=== PATIENT | female | born 1950 | race Caucasian/White ===

== ENCOUNTER 2016-05-23 14:45 | Emergency (ER) | payer OTHER, MEDICARE ==
--- NOTE | 2016-05-23 14:47 | EDPHY ---
HPI/HX/ROS/PE/MDM Narrative: CHIEF COMPLAINT: Fall, AMS. HPI: This is a 68-year-old female presenting via EMS as a full trauma activation for AMS after a fall and head trauma. Per EMS she was found by her down in the shower after an apparent head trauma. He had last seen her normal at 1200. She was initially unresponsive but was able to answer basic questions for EMS. She is oriented to self. She denies any pain. She denies any preceding factors. She admits to drinking a large amount of alcohol today. History is thus limited. REVIEW OF SYSTEMS: Unobtainable due to patient's clinical condition. PMH: Unknown. SOCIAL HISTORY: . PHYSICAL EXAM: General:Patient is in no acute distress. Head: Abrasion above right eyebrow, contusion at right episcopal. ENT:Eyes are normal to inspection. ENT inspection normal. PERRL, pupils 3mm. Neck: Normal inspection. Full range of motion. Respiratory:No respiratory distress. Breath sounds normal bilaterally. Cardiovascular: Regular rate and rhythm. Strong peripheral pulses. Normal cap refill. Abdomen:The abdomen is nontender to palpation. There are no peritoneal signs. There are normal bowel sounds. Back: Normal to inspection. No tenderness to palpation. Skin: Normal color. No rash. Warm and dry. Extremities: Normal appearance. Full range of motion. Neuro: Normal motor function. Normal sensory function. ED Course: I met the patient on arrival and obtained a report from the vinyl welder and fabricator. Respiratory therapy at bedside. Dr. Johnson, surgery, at bedside. Full trauma activation was downgraded after initial examination. She was placed in a c- collar on arrival. Patient was placed on nasal cannula oxygen. An IV was established and labs ordered, including blood alcohol level. Head and cervical spine CTs ordered. Blood alcohol level 201. Study: CT of the head. Indication: Results: No acute process. The study was read by the radiologist, Dr. Dalal. I viewed the images myself on the PACS system. Study: CT of the cervical spine. Indication: Results: No acute process. The study was read by the radiologist, Dr. Dalal. I viewed the images myself on the PACS system. MDM: This patient presented as a full trauma activation due to fall and AMS. Thankfully, her workup is negative and there are no signs of severe head trauma on head CT. I had an extensive discussion with the patient and her family regarding these results. The patient and family do not know exactly what happened, although it sounds like there was some severe emotional stress related to a family member and the patient did drink some alcohol. Given the uncertainty around what led to her fall, I recommended that the patient be admitted as an observation patient overnight in order to rule out possible neurologic or cardiac etiology of her fall and AMS, and to ensure her mental status remained normal. She and her family agreed. A short time after this, I was notified by the nurse that the patient changed her mind and wanted to be discharged. I went back to the patient's room and discussed this with her - she stated that she wanted to go home but knew that if she was listed as "against medical advice" then she would have to pay $100,000 for the visit. I told her I have no knowledge that this is true, or what her financial obligation would be in any case, and that my primary concern was her safety. At this point, another full trauma activation came in, which required by immediate attention. Upon returning to talk with the patient, she was extremely upset and told me that she does not feel respected or that she has received any attention from the hospital staff. I explained to her and her family that she came in as a Full Trauma Activation, which meant that approximately 20 staff members were at her bedside from the moment she arrived. She tells me that she demands I change her status to something other than AMA so that she can leave and not be charged extra money. I again explained to her and her family that in my medical opinion she should be admitted for telemetry monitoring and further observation and workup. I told her we would never force her to stay against her will but that I would not change my medical opinion because of her demand that I do. She then became extremely upset and said that this is clearly not my medical opinion and that I am doing this only to make the hospital money. She says "This is clearly not your medical opinion - this is just a one size fits all policy!" She then stated that she would be admitted in order to avoid this extra cost, but wouldn't allow anyone to do tests on her. I explained to the patient that we are all here for her safety, but that admission to the hospital for the sole reason of avoiding AMA in her chart is neither rational nor an ethical use of the limited resources of the hospital. The patient stated that we have paid no attention to her and that our primary motivation was to try and charge her more money. Again, I told the patient we would not force the patient to stay against her will, and that she would have to make a decision. She told me that she wanted to walk out of the ED now. The patient was thus discharged from the ED. I think the patient is making a poor decision, but she is now clinically sober and appears to have decisional capacity. Her family is at bedside and appears to accept this decision. I am unsure why she has become so hostile to staff. Our interaction was witnessed by Dr. Johnson from Trauma Surgery as well as multiple members of the nursing staff. - Data Points Laboratory Results: Laboratory Results 05/23/16 16:15 05/23/16 14:57 05/23/16 05/23/16 05/23/16 16:15 16:15 14:57 WBC 7.49 10^3/uL 10^3/uL (3.80-9.50) RBC 4.43 10^6/uL 10^6/uL (4.18-5.33) Hgb 14.7 g/dL g/dL (12.6-16.3) POC Hgb Hct 43.1 % % (38.0-47.0) POC Hct MCV 97.3 fL fL (81.5-99.8) MCH 33.2 pg pg (27.9-34.1) MCHC 34.1 g/dL g/dL (32.4-36.7) RDW 12.8 % % (11.5-15.2) Plt Count 203 10^3/uL 10^3/uL (150-400) MPV 10.3 fL fL (8.7-11.7) Neut % (Auto) 55.2 % % (39.3-74.2) Lymph % (Auto) 34.8 % % (15.0-45.0) Gates % (Auto) 6.9 % % (4.5-13.0) Eos % (Auto) 2.3 % % (0.6-7.6) Baso % (Auto) 0.4 % % (0.3-1.7) Nucleat RBC Rel Count 0.0 % % (0.0-0.2) Absolute Neuts (auto) 4.13 10^3/uL 10^3/uL (1.70-6.50) Absolute Lymphs (auto) 2.61 10^3/uL 10^3/uL (1.00-3.00) Absolute Monos (auto) 0.52 10^3/uL 10^3/uL (0.30-0.80) Absolute Eos (auto) 0.17 10^3/uL 10^3/uL (0.03-0.40) Absolute Basos (auto) 0.03 10^3/uL 10^3/uL (0.02-0.10) Absolute Nucleated RBC 0.00 10^3/uL 10^3/uL (0-0.01) Immature Gran % 0.4 % % (0.0-1.1) Immature Gran # 0.03 10^3/uL 10^3/uL (0.00-0.10) POC Sodium Sodium POC Potassium Potassium POC Chloride Chloride Carbon Dioxide Anion Gap POC BUN BUN Creatinine POC Creatinine Estimated GFR Glucose POC Glucose Calcium Troponin I < 0.012 ng/mL ng/mL (0-0.034) Ethyl Alcohol Patient ABO/Rh A POSITIVE Antibody Screen NEGATIVE 05/23/16 05/23/16 14:57 14:53 WBC RBC Hgb POC Hgb 17.0 gm/dL H gm/dL (12.3-15.9) Hct POC Hct 50 % H % (35.5-47.5) MCV MCH MCHC RDW Plt Count MPV Neut % (Auto) Lymph % (Auto) Gates % (Auto) Eos % (Auto) Baso % (Auto) Nucleat RBC Rel Count Absolute Neuts (auto) Absolute Lymphs (auto) Absolute Monos (auto) Absolute Eos (auto) Absolute Basos (auto) Absolute Nucleated RBC Immature Gran % Immature Gran # POC Sodium 144 mEq/L mEq/L (134-144) Sodium 143 mEq/L mEq/L (134-144) POC Potassium 4.4 mEq/L mEq/L (3.3-5.0) Potassium 4.9 mEq/L mEq/L (3.5-5.2) POC Chloride 109 mEq/L H mEq/L (96-108) Chloride 107 mEq/L mEq/L (97-110) Carbon Dioxide 20 mEq/l L mEq/l (22-31) Anion Gap 16 mEq/L mEq/L (8-16) POC BUN 13 mg/dL mg/dL (7-23) BUN 13 mg/dL mg/dL (7-23) Creatinine 0.7 mg/dL mg/dL (0.6-1.0) POC Creatinine 0.9 mg/dL mg/dL (0.6-1.2) Estimated GFR > 60 Glucose 99 mg/dL mg/dL (70-100) POC Glucose 100 mg/dL mg/dL (70-100) Calcium 9.4 mg/dL mg/dL (8.5-10.4) Troponin I Ethyl Alcohol 201 mg/dL H mg/dL (0-10) Patient ABO/Rh Antibody Screen Medications Given: Discontinued Medications Sodium Chloride (Ns) 1,000 mls @ 0 mls/hr IV ONCE ONE PRN Reason: Wide Open Stop: 05/23/16 14:54 Last Admin: 05/23/16 14:48 Dose: 1,000 mls Point of Care Test Results: 05/23/16 14:53 POC Sodium 144 POC Potassium 4.4 POC Chloride 109 H POC BUN 13 POC Creatinine 0.9 POC Glucose 100 General Initial Vital Signs: Initial Vital Signs Temperature (C) 36.1 C 05/23/16 14:45 Heart Rate 86 05/23/16 14:45 Respiratory Rate 14 05/23/16 14:45 Blood Pressure 108/70 05/23/16 14:45 O2 Sat (%) 86 L 05/23/16 14:45 O2 Delivery Mode Nasal Cannula Allergies/Adverse Reactions: No Known Allergies Allergy (Unverified 08/14/15 19:14) Home Medications: Medication Instructions Recorded Ativan 05/23/16 Departure - Departure Disposition: Home, Routine, Self-Care Clinical Impression: Alcohol intoxication Qualifiers: Complication of substance-induced condition: uncomplicated Qualified Code(s): F10.120 - Alcohol abuse with intoxication, uncomplicated Closed head injury Qualifiers: Encounter type: initial encounter Qualified Code(s): S09.90XA - Unspecified injury of head, initial encounter Condition: Good Instructions: Head Injury (ED), Alcohol Intoxication (ED) Additional Instructions: Follow up with your primary care provider this week for reevaluation. Return to the ED for any serious worsening of condition. Referrals: Patient,NotPresent [Primary Care Provider] - As per Instructions Report Scribed for: Dani Ventura Report Scribed by: Flip Guzman Date of Report: 05/23/16 Time of Report: 14:43 Physician Review and Approval Statement: Portions of this note were transcribed by a director medical economics. I personally performed a history, physical exam, medical decision making, and confirmed accuracy of information the transcribed note.
[2016-05-23] MEDS ORDERED: NS 1,000 ML IV ONE (14:53)
[2016-05-23 15:17] LABS: ANION GAP 16 mEq/L (8-16); CALCIUM 9.4 mg/dL (8.5-10.4); CARBON DIOXIDE 20 mEq/l (22-31); CHLORIDE 107 mEq/L (97-110); CREATININE 0.7 mg/dL (0.6-1.0); ETHANOL SERUM 201 mg/dL (0-10); GLOMERULAR FILTRATION RATE > 60; GLUCOSE 99 mg/dL (70-100); POTASSIUM 4.9 mEq/L (3.5-5.2); SODIUM 143 mEq/L (134-144)
--- NOTE | 2016-05-23 16:21 | CPEKG ---
Heart Rate: 93 RR Interval: 645 P-R Interval: 164 QRSD Interval: 82 QT Interval: 380 QTC Interval: 473 P [place]: 57 QRS [place]: 13 T Wave [place]: 10 EKG Severity - NORMAL ECG - EKG Impression: SINUS RHYTHM Electronically Signed By: Micah Shields 24-May-2016 09:40:10
[2016-05-23 16:29] LABS: % IMMATURE GRANULYOCYTES 0.4 % (0.0-1.1); ABSOLUTE IMMATURE GRANULOCYTES 0.03 10^3/uL (0.00-0.10); ADD DIFF? NO; ADD MORPH? NO; ADD SCAN? NO; ATYPICAL LYMPHOCYTE FLAG 0 (0-99); FRAGMENT RBC FLAG 0 (0-99); HEMATOCRIT 43.1 % (38.0-47.0); HEMOGLOBIN 14.7 g/dL (12.6-16.3); LEFT SHIFT FLG 0 (0-99); LIPEMIA HEMOLYSIS FLAG 90 (0-99); MEAN CELL HEMOGLOBIN 33.2 pg (27.9-34.1); MEAN CELL HEMOGLOBIN CONCENTR. 34.1 g/dL (32.4-36.7); MEAN CELL VOLUME 97.3 fL (81.5-99.8); MEAN PLATELET VOLUME 10.3 fL (8.7-11.7); PLATELET CLUMPS FLAG 10 (0-99); PLATELET COUNT 203 10^3/uL (150-400); RED BLOOD CELL COUNT 4.43 10^6/uL (4.18-5.33); RED CELL DISTRIBUTION WIDTH 12.8 % (11.5-15.2)
--- NOTE | 2016-05-23 16:53 | GCON ---
[f rep st] CONSULTATION DATE OF CONSULTATION: 05/23/2016 CHIEF COMPLAINT: Fall, altered mental status, original trauma activation which was then immediately downgraded. HISTORY OF PRESENT ILLNESS: The patient is a 66-year-old woman, who presented as a full trauma activation after a fall. Her found her down in the shower. She was unresponsive. She presented to the ER, and Dr. Ventura was able to downgrade that. I was paged at 2:38 p.m. and arrived at the ER shortly thereafter within 5 minutes. She admits to drinking today. She denies any illegal drugs. She is otherwise not able to state her history. She does remember falling. PAST MEDICAL HISTORY: Unable to be obtained. SOCIAL HISTORY: She is . She has been drinking a lot of alcohol. REVIEW OF SYSTEMS: Unable to be obtained. FAMILY HISTORY: Noncontributory. PHYSICAL EXAM: GENERAL: She is lying on the bed with a C-collar in place. She is cooperative with the exam. Her GCS is 14. HEENT: She has a slight contusion at the right advent, an abrasion above the right eyebrow. Her pupils are equal, round, reactive to light. There is no otorrhea. There is no rhinorrhea. There is no midface instability. NECK: C-collar in place. No cervical spine tenderness. LUNGS: Clear to auscultation bilaterally. No increased work of breathing. CARDIAC: Regular rate. She has strong 2+ peripheral pulses. ABDOMEN: Bowel sounds present. She is soft, nontender, nondistended, and there are no abrasions. SKIN: Warm and dry. EXTREMITIES: Moves all extremities with full range of motion. NEURO: Grossly intact. IMPRESSION AND PLAN: The patient is a 66-year-old woman, status post unwitnessed fall with a contusion to her right advent. A CT scan of her head and C-spine have been ordered. A blood alcohol level has been ordered, which is 201. I am currently awaiting the results of her CT scan. CT scan without intracranial abnormality. I recommended admission to the hospitalist service /[id number]/MODL MTDD
[2016-05-23 19:01] VITALS: BP 126/96; PULSE 102; RESP 18; TEMP 97.9; O2SAT 96
== END 2016-05-23 18:59 | disposition home or self-care (01) ==
LOC: EDUNIT#
DX: S09.90XA Unspecified injury of head, initial encounter (principal); F10.120 Alcohol abuse with intoxication, uncomplicated; W18.39XA Other fall on same level, initial encounter
CPT/HCPCS: 82947-QW; G0480

== ENCOUNTER → 2016-07-20 | Outpatient (CLI) | payer OTHER, MEDICARE | LOC: FIMAGING 11:39 | DX: Z12.31 Encounter for screening mammogram for malignant neoplasm of breast (principal) | CPT/HCPCS: G0202 ==

== ENCOUNTER 2016-10-05 14:26 | Emergency (ER) | payer OTHER, MEDICARE ==
[2016-10-05 14:47] VITALS: BP 112/74; TEMP 97.7
[2016-10-05 15:14] VITALS: PULSE 98; RESP 14; O2SAT 96
--- NOTE | 2016-10-05 16:18 | EDPHY ---
H & P Time Seen by Provider: 10/05/16 15:00 HPI/ROS: CHIEF COMPLAINT: Alcohol intoxication, grief, M1 hold HISTORY OF PRESENT ILLNESS: 66-year-old female presents to the emergency department by ambulance very tearful. She feels that this was applied by her sister to call the police. Patient states that her elderly mother is currently in hospice and is not doing well. She got into an argument with her sister and brother over her mother's care. Her sister called the police thinking that the patient was acting altered. The sister also told the police that the patient took 5 trazodone today. The patient is prescribed trazodone has been taking this for years. She typically takes half of a 50 mg tablet nightly at bedtime. Her last dose she states was half of a tablet yesterday before she went to bed. She admits to drinking alcohol today. She denies suicidal homicidal ideation. She feels safe at home. She is and lives with her . REVIEW OF SYSTEMS: Constitutional: No fever, no chills. Eyes: No double or blurry vision. ENT: No sore throat. Respiratory: No cough, no shortness of breath. Cardiac: No chest pain. Gastrointestinal: No abdominal pain, vomiting or diarrhea. Genitourinary: No dysuria. Musculoskeletal: No neck or back pain. Skin: No rashes. Neurological: No headache. Past Medical/Surgical History: Negative Social History: Smoking Status: Former smoker Physical Exam: General Appearance: Alert, no distress. Tearful. Eyes: Pupils equal and round. Extraocular motions are all intact. ENT: Mouth: Mucous membranes moist. Respiratory: No wheezing, rhonchi, or rales, lungs are clear to auscultation. Cardiovascular: Regular rate and rhythm. Gastrointestinal: Abdomen is soft and nontender, no masses, no rebound or guarding, bowel sounds normal. Neurological: Alert and oriented x 3, cranial nerves II through XII grossly intact Skin: Warm and dry, no rashes. Musculoskeletal: Nontender to palpate along the cervical, thoracic or lumbar spine. Neck is supple. Extremities: Full range of motion and no peripheral edema. Psychiatric: Patient is oriented X 3, there is no agitation. Constitutional: Initial Vital Signs Temperature (C) 36.5 C 10/05/16 14:26 Heart Rate 123 H 10/05/16 14:26 Respiratory Rate 16 07/04/17 14:26 Blood Pressure 112/74 10/05/16 14:26 O2 Sat (%) 88 L 10/05/16 14:26 O2 Delivery Mode Room Air Allergies/Adverse Reactions: No Known Allergies Allergy (Unverified 08/14/15 19:14) Home Medications: Medication Instructions Recorded Ativan 05/23/16 Medical Decision Making ED Course/Re-evaluation: 66-year-old female presents to the emergency department on M1 hold. The patient is experiencing grief with her mother now on hospice. She got into an argument with her sister. She states that she did not overdose on trazodone. She does admit to drinking alcohol today. She had ETOH breath of 0.19. The patient had normal examination. I do not think that she is a danger to herself or others. She declined mental health evaluation. She was observed for over 2 hours in the emergency department and was able to eat and drink. She was not slurring her words. Clinically I think she is sober. She would like to be discharged home. Her who was at bedside who is sober is comfortable taking her home and will bring her back if they have any other concerns. M1 hold vacated. Differential Diagnosis: Depression including functional and major depression, situational depression, medication side effect, drugs and alcohol abuse. Departure - Departure Disposition: Home, Routine, Self-Care Clinical Impression: Grief Condition: Good Instructions: Grief and Loss (ED) Additional Instructions: Please return if you have any suicidal or homicidal ideation or if you have any other concerns. Take medication as prescribed. Referrals: Nelida Carvajal MD [Medical Doctor] - As per Instructions
== END 2016-10-05 16:41 | disposition home or self-care (01) ==
LOC: EDUNIT#
DX: F43.21 Adjustment disorder with depressed mood (principal); Z87.891 Personal history of nicotine dependence

== ENCOUNTER → 2017-03-22 | Outpatient (CLI) | payer OTHER, MEDICARE | LOC: BRMIMAGING 13:03 | PROVIDERS: ATTEND Family Medicine | DX: Z13.820 Encounter for screening for osteoporosis (principal); M85.89 Other specified disorders of bone density and structure, multiple sites ==

== ENCOUNTER → 2017-09-01 | Outpatient (CLI) | payer OTHER, MEDICARE | LOC: FIMAGING 14:12 | PROVIDERS: ATTEND Family Medicine | DX: Z12.31 Encounter for screening mammogram for malignant neoplasm of breast (principal) ==

== ENCOUNTER → 2017-09-20 | Outpatient (CLI) | payer OTHER, MEDICARE | LOC: FIMAGING 13:24 | PROVIDERS: ATTEND Family Medicine | DX: R92.8 Other abnormal and inconclusive findings on diagnostic imaging of breast (principal) ==